=== PATIENT | female | born 1965 | race African-American/Black ===

== ENCOUNTER → 2023-04-05 | Outpatient (CLI) | payer BC ==
[~2023-04-05] MED LIST: CITA20TA19
[2023-04-05 09:12] LABS: BASOPHILS % 0.5 % (0.0-2.0); EOSINOPHILS % 2.3 % (0.0-5.0); HEMATOCRIT. 41.3 % (36.0-48.0); HEMOGLOBIN. 13.4 g/dL (12.0-16.0); LYMPHOCYTES % 42.5 % (20.0-50.0); MEAN CORPUSCULAR HEMOGLOBIN 30.3 pg (28.0-32.0); MEAN CORPUSCULAR HGB CONC 32.5 g/dL (31.0-37.0); MEAN CORPUSCULAR VOLUME 93.3 fL (81.0-99.0); MEAN PLATELET VOLUME 7.9 fl (7.4-10.4); MONOCYTES % 8.3 % (2.0-8.0); NEUTROPHILS % 46.4 % (40.0-76.0); PLATELET 274 x1000/uL (130-400); RED BLOOD CELL COUNT 4.42 mill/uL (4.2-5.4); RED CELL DISTRIBUTION WIDTH 14.2 % (11.6-14.6); WHITE BLOOD COUNT 3.4 x1000/uL (4.5-11.0)
[2023-04-05 09:16] LABS: CLARITY URINE CLOUDY (CLEAR); COLOR URINE YELLOW (YELLOW); GLUCOSE URINE NEGATIVE (NEGATIVE); KETONES URINE NEGATIVE (NEGATIVE); LEUKOCYTE ESTERASE URINE NEGATIVE (NEGATIVE); NITRITE URINE NEGATIVE (NEGATIVE); OCCULT BLOOD URINE NEGATIVE (NEGATIVE); PROTEIN URINE NEGATIVE (NEGATIVE); SPECIFIC GRAVITY URINE 1.011 (1.005-1.030)
[2023-04-05 09:40] LABS: SQUAMOUS EPITHELIAL CELL URINE 3+ /lpf (RARE/1+)
[2023-04-05 09:43] LABS: BACTERIA URINE 1+
[2023-04-05 09:44] LABS: RBC URINE 0-2 /hpf (0-2); WBC URINE 0-2 /hpf (0-2)
[2023-04-05 10:39] LABS: ALANINE AMINOTRANSFERASE 14 IU/L (10-49); ALBUMIN 4.5 g/dL (3.2-4.8); ASPARTATE AMINOTRANSFERASE 24 IU/L (<34); BILIRUBIN TOTAL 0.5 mg/dL (0.1-1.0); CALCIUM 9.8 mg/dL (8.7-10.4); CARBON DIOXIDE 28 mEq/L (21-32); CHLORIDE 104 mEq/L (98-107); CHOLESTEROL 156 mg/dL (<200); CREATININE 0.8 mg/dL (0.6-1.0); GLUCOSE 91 mg/dL (70-105); HDL CHOLESTEROL 101 mg/dL (>65); LDL CHOLESTEROL 70 mg/dL (5-100); PROTEIN TOTAL 7.7 g/dL (6.0-8.3); SODIUM 138 mEq/L (136-145); T4 FREE 1.04 ng/dL (0.89-1.76); THYROID STIMULATING HORMONE 1.59 uIU/mL (0.55-4.78); TRIGLYCERIDE 55 mg/dL (0-150); UREA NITROGEN BLOOD 12 mg/dL (9-23)
[2023-04-06 13:07] LABS: *CREATININE RANDOM URINE 27.9 mg/dL (Not Estab.); MICROALBUMIN RANDOM URINE 3.8 ug/mL (Not Estab.)
== END | disposition home or self-care (01) ==
LOC: LAB 04-04 13:47
PROVIDERS: ATTEND Internal Medicine Nephrology
DX: E55.9 Vitamin D deficiency, unspecified (principal); D64.9 Anemia, unspecified; E03.9 Hypothyroidism, unspecified; N39.0 Urinary tract infection, site not specified; E78.5 Hyperlipidemia, unspecified; E66.01 Morbid (severe) obesity due to excess calories
CPT/HCPCS: 36415; 80053; 80061; 81003; 82043; 82306; 82570; 83036; 83970; 84439; 84443; 85025

== ENCOUNTER → 2023-04-25 | Outpatient (CLI) | payer BC ==
[~2023-04-25] MED LIST changes: +IOHEXOL-300 100 ML BOTTLE ONE
== END | disposition home or self-care (01) ==
LOC: MAMMO 08:10
PROVIDERS: ATTEND Internal Medicine Nephrology
DX: Z12.31 Encounter for screening mammogram for malignant neoplasm of breast (principal); C55 Malignant neoplasm of uterus, part unspecified; D25.9 Leiomyoma of uterus, unspecified
CPT/HCPCS: 74178; 76830; 76856; 77067; 77063; Q9967

== ENCOUNTER → 2023-05-17 | Outpatient (CLI) | payer BC ==
[~2023-05-17] MED LIST changes: +GADOTERATE MEGLUMINE 5 MMOL/10 ML VIAL IV ONE; -IOHEXOL-300 100 ML BOTTLE ONE
== END | disposition home or self-care (01) ==
LOC: MRI 07:45
PROVIDERS: ATTEND Obstetrics & Gynecology
DX: D25.9 Leiomyoma of uterus, unspecified (principal)
CPT/HCPCS: 72197; A9577

== ENCOUNTER → 2023-09-01 | Outpatient (CLI) | payer BC ==
[~2023-09-01] MED LIST changes: -GADOTERATE MEGLUMINE 5 MMOL/10 ML VIAL IV ONE
[2023-09-01 19:08] LABS: CLARITY URINE CLEAR (CLEAR); COLOR URINE YELLOW (YELLOW); GLUCOSE URINE NEGATIVE (NEGATIVE); KETONES URINE NEGATIVE (NEGATIVE); LEUKOCYTE ESTERASE URINE NEGATIVE (NEGATIVE); NITRITE URINE NEGATIVE (NEGATIVE); OCCULT BLOOD URINE NEGATIVE (NEGATIVE); PH URINE 5.5 (4.5-8.0); PROTEIN URINE NEGATIVE (NEGATIVE); SPECIFIC GRAVITY URINE 1.016 (1.005-1.030)
[2023-09-01 19:14] LABS: BASOPHILS % 0.9 % (0.0-2.0); EOSINOPHILS % 1.8 % (0.0-5.0); HEMATOCRIT. 37.7 % (36.0-48.0); HEMOGLOBIN. 12.6 g/dL (12.0-16.0); LYMPHOCYTES % 41.5 % (20.0-50.0); MEAN CORPUSCULAR HEMOGLOBIN 31.1 pg (28.0-32.0); MEAN CORPUSCULAR HGB CONC 33.4 g/dL (31.0-37.0); MEAN CORPUSCULAR VOLUME 93.2 fL (81.0-99.0); MEAN PLATELET VOLUME 8.1 fl (7.4-10.4); MONOCYTES % 6.8 % (2.0-8.0); PLATELET 257 x1000/uL (130-400); RED BLOOD CELL COUNT 4.04 mill/uL (4.2-5.4); RED CELL DISTRIBUTION WIDTH 14.1 % (11.6-14.6); WHITE BLOOD COUNT 4.6 x1000/uL (4.5-11.0)
[2023-09-01 19:21] LABS: CHLORIDE 105 mEq/L (98-107); POTASSIUM 3.6 mEq/L (3.5-5.1); SODIUM 140 mEq/L (136-145)
[2023-09-01 19:22] LABS: CALCIUM 9.5 mg/dL (8.7-10.4); CARBON DIOXIDE 28 mEq/L (21-32)
[2023-09-01 19:31] LABS: CREATININE URINE RANDOM 132.7 mg/dL
[2023-09-01 19:56] LABS: T4 FREE 0.88 ng/dL (0.89-1.76); THYROID STIMULATING HORMONE 2.09 uIU/mL (0.55-4.78)
[2023-09-01 19:59] LABS: ALANINE AMINOTRANSFERASE 16 IU/L (10-49); ALBUMIN 4.2 g/dL (3.2-4.8); ASPARTATE AMINOTRANSFERASE 22 IU/L (<34); BILIRUBIN TOTAL 0.5 mg/dL (0.1-1.0); C REACTIVE PROTEIN QUANT 3.5 mg/L (0.0-3.0); CHOLESTEROL 196 mg/dL (<200); CREATININE 0.9 mg/dL (0.6-1.0); GLUCOSE 83 mg/dL (70-105); HDL CHOLESTEROL 99 mg/dL (>65); LDL CHOLESTEROL 80 mg/dL (5-100); PHOSPHORUS 4.2 mg/dL (2.5-4.9); PROTEIN TOTAL 6.9 g/dL (6.0-8.3); TRIGLYCERIDE 42 mg/dL (0-150); UREA NITROGEN BLOOD 16 mg/dL (9-23)
[2023-09-04 09:10] LABS: CANCER ANTIGEN 125 4.9 U/mL (0.0-38.1)
[2023-09-05 04:08] LABS: VITAMIN D 25-OH 14.3 ng/mL (30.0-100.0)
== END | disposition home or self-care (01) ==
LOC: LAB 13:32
PROVIDERS: ATTEND Internal Medicine Nephrology
DX: I10 Essential (primary) hypertension (principal); D64.9 Anemia, unspecified; E03.9 Hypothyroidism, unspecified; E55.9 Vitamin D deficiency, unspecified; E86.0 Dehydration; K21.9 Gastro-esophageal reflux disease without esophagitis
CPT/HCPCS: 36415; 80053; 80061; 81003; 82306; 82570; 83036; 83970; 84100; 84156; 84439; 84443; 85025; 86140; 86304

== ENCOUNTER → 2024-04-29 | Outpatient (CLI) | payer BC ==
[2024-04-29 12:07] LABS: CLARITY URINE CLEAR (CLEAR); COLOR URINE YELLOW (YELLOW); GLUCOSE URINE NEGATIVE (NEGATIVE); KETONES URINE NEGATIVE (NEGATIVE); LEUKOCYTE ESTERASE URINE NEGATIVE (NEGATIVE); NITRITE URINE NEGATIVE (NEGATIVE); OCCULT BLOOD URINE NEGATIVE (NEGATIVE); PH URINE 5.5 (4.5-8.0); PROTEIN URINE NEGATIVE (NEGATIVE); SPECIFIC GRAVITY URINE 1.015 (1.005-1.030)
[2024-04-29 12:14] LABS: CARBON DIOXIDE 29 mEq/L (21-32); CHLORIDE 104 mEq/L (98-107); POTASSIUM 4.1 mEq/L (3.5-5.1); SODIUM 141 mEq/L (136-145)
[2024-04-29 12:15] LABS: CALCIUM 10.2 mg/dL (8.7-10.4)
[2024-04-29 12:19] LABS: CREATININE 0.8 mg/dL (0.6-1.0); GLUCOSE 89 mg/dL (70-105)
[2024-04-29 12:20] LABS: BASOPHILS % 0.5 % (0.0-2.0); EOSINOPHILS % 1.3 % (0.0-5.0); HEMATOCRIT. 43.5 % (36.0-48.0); HEMOGLOBIN. 14.3 g/dL (12.0-16.0); LYMPHOCYTES % 40.6 % (20.0-50.0); MEAN CORPUSCULAR VOLUME 93.9 fL (81.0-99.0); MEAN PLATELET VOLUME 8.4 fl (7.4-10.4); MONOCYTES % 6.3 % (2.0-8.0); NEUTROPHILS % 51.3 % (40.0-76.0); PLATELET 270 x1000/uL (130-400); RED BLOOD CELL COUNT 4.63 mill/uL (4.2-5.4); RED CELL DISTRIBUTION WIDTH 14.8 % (11.6-14.6); UREA NITROGEN BLOOD 11 mg/dL (9-23); WHITE BLOOD COUNT 4.3 x1000/uL (4.5-11.0)
[2024-04-29 12:21] LABS: ALANINE AMINOTRANSFERASE 31 IU/L (10-49); ALBUMIN 4.6 g/dL (3.2-4.8); ASPARTATE AMINOTRANSFERASE 32 IU/L (<34); C REACTIVE PROTEIN HIGH SENS 2.82 mg/l (<1.00)
[2024-04-29 12:22] LABS: BILIRUBIN TOTAL 0.6 mg/dL (0.1-1.0); PHOSPHORUS 3.7 mg/dL (2.5-4.9)
[2024-04-29 12:24] LABS: T4 FREE 1.12 ng/dL (0.89-1.76); THYROID STIMULATING HORMONE 2.27 uIU/mL (0.55-4.78)
[2024-05-01 08:11] LABS: *THYROXINE INDEX FREE 1.8 (1.2-4.9); T4 THYROXINE 5.9 ug/dL (4.5-12.0); VITAMIN D 25-OH 19.1 ng/mL (30.0-100.0)
== END | disposition home or self-care (01) ==
LOC: LAB 09:22
PROVIDERS: ATTEND Internal Medicine Nephrology
DX: E11.29 Type 2 diabetes mellitus with other diabetic kidney complication (principal); I10 Essential (primary) hypertension; N17.9 Acute kidney failure, unspecified; K21.9 Gastro-esophageal reflux disease without esophagitis; N39.0 Urinary tract infection, site not specified; E87.5 Hyperkalemia; E86.0 Dehydration; N28.9 Disorder of kidney and ureter, unspecified; D64.9 Anemia, unspecified; E21.3 Hyperparathyroidism, unspecified; E03.9 Hypothyroidism, unspecified; E78.5 Hyperlipidemia, unspecified; R80.9 Proteinuria, unspecified; E55.9 Vitamin D deficiency, unspecified
CPT/HCPCS: 36415; 80053; 80069; 81003; 82306; 82570; 83036; 83970; 84100; 84156; 84436; 84439; 84443; 84479; 84481; 85025; 86141